=== PATIENT | female | born 1990 | race Caucasian/White ===

== ENCOUNTER 2017-05-29 09:33 | Emergency (ER) | payer BC, MEDICAID ==
[~2017-05-29 09:33] MED LIST: IBUP600 PO; PRENTAB62 PO
[2017-05-29 09:43] VITALS: BP 116/68; PULSE 97; RESP 18; TEMP 97.5; O2SAT 100
[2017-05-29] MEDS ORDERED: VITACAP8 PO (09:52)
[2017-05-29] MEDS ORDERED: ONDANSETRON HCL 4 MG/2 ML VIAL IV PUSH ONE (10:15)
[2017-05-29 10:26] LABS: AUTOMATED NEUTROPHIL # 14.4 TH/MM3 (1.8-7.7); BASOPHIL # 0.1 TH/MM3 (0-0.2); BASOPHIL % 0.3 % (0.0-2.0); EOSINOPHIL # 0.1 TH/MM3 (0-0.4); EOSINOPHIL % 0.5 % (0.0-4.0); HEMATOCRIT 38.1 % (35.0-46.0); HEMOGLOBIN 12.6 GM/DL (11.6-15.3); LYMPH % 8.6 % (9.0-44.0); LYMPHOCYTE # 1.4 TH/MM3 (1.0-4.8); MEAN CELL VOLUME 83.2 FL (80.0-100.0); MEAN CORPUSCULAR HEMOGLOBIN 27.6 PG (27.0-34.0); MEAN CORPUSCULAR HGB CONC 33.2 % (32.0-36.0); MEAN PLATELET VOLUME 7.5 FL (7.0-11.0); MONO % 3.7 % (0.0-8.0); MONOCYTE # 0.6 TH/MM3 (0-0.9); NEUT % 86.9 % (16.0-70.0); PLATELET COUNT 265 TH/MM3 (150-450); RED BLOOD COUNT 4.58 MIL/MM3 (4.00-5.30); RED CELL DISTRIBUTION WIDTH 14.3 % (11.6-17.2); WHITE BLOOD COUNT 16.6 TH/MM3 (4.0-11.0)
--- NOTE | 2017-05-29 10:29 | PD ---
HPI Chief Complaint: Syncope/Near-Syncope Time Seen by Provider: 09:50 Travel History International Travel<30 days: No Contact w/Intl Traveler<30days: No Traveled to known affect area: No History of Present Illness HPI 27-year-old at 24 weeks states this morning she has been feeling lightheaded, nauseous, and had an episode of nonbloody diarrhea. 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 She states with her 3 prior pregnancies she had no issues and was induced 1 week early with 1 of them. This she has not had any issues she denies any other concurrent complaints including abdominal pain, vaginal bleeding, fever Or other acute concerns. She states she feels worse when she moves around. She denies other modifying factors. Quality is lightheaded. Severity is progressive. PFSH Past Medical History Medical History: Denies Significant Hx Immunizations Current: Yes ?: LMP: 24 weeks Past Surgical History Surgical History: No Previous Surgery Social History Alcohol Use: No Tobacco Use: No Substance Use: No Allergies-Medications (Allergen,Severity, Reaction): Coded Allergies: No Known Allergies (Verified , 12/01/15) Reported Meds & Prescriptions Reported Meds & Active Scripts Active Reported Vitafol-One Capsule ( 26/Iron Ps/Folic/Dha) 29 Mg Iron-1 Mg-200 Mg Capsule 1 Cap PO DAILY Review of Systems Except as stated in HPI: all other systems reviewed are Neg Physical Exam Narrative GENERAL: 27-year-old female in no apparent distress SKIN: Focused skin assessment warm/dry. HEAD: Atraumatic. Normocephalic. EYES: Pupils equal and round. No scleral icterus. No injection or drainage. ENT: No nasal bleeding or discharge. Mucous membranes pink and moist. NECK: Trachea midline. No JVD. CARDIOVASCULAR: Regular rate and rhythm. No murmur appreciated. RESPIRATORY: No accessory muscle use. Clear to auscultation. Breath sounds equal bilaterally. GASTROINTESTINAL: Abdomen soft, non-tender MUSCULOSKELETAL: No obvious deformities. No clubbing. No cyanosis. NEUROLOGICAL: Awake and alert. No obvious cranial nerve deficits. Motor grossly within normal limits. Normal speech. PSYCHIATRIC: Appropriate mood and affect; insight and judgment normal. Data Data Last Documented VS Vital Signs Date Time Temp Pulse Resp B/P (MAP) Pulse Ox O2 Delivery O2 Flow Rate FiO2 05/29/17 09:43 97.5 97 18 116/68 (84) 100 Orders Orders Complete Blood Count With Diff (05/29/17 09:50) Basic Metabolic Panel (Bmp) (05/29/17 09:50) Urinalysis - C+S If Indicated (05/29/17 09:50) Iv Access Insert/Monitor (05/29/17 09:50) Heart Tones (05/29/17 09:51) Ondansetron Inj (Zofran Inj) (05/29/17 10:15) Sodium Chlor 0.9% 1000 Ml Inj (Ns 1000 M (05/29/17 11:15) Ed Discharge Order (05/29/17 11:48) Labs Laboratory Tests Test 05/29/17 10:03 05/29/17 11:25 White Blood Count 16.6 TH/MM3 Red Blood Count 4.58 MIL/MM3 Hemoglobin 12.6 GM/DL Hematocrit 38.1 % Mean Corpuscular Volume 83.2 FL Mean Corpuscular Hemoglobin 27.6 PG Mean Corpuscular Hemoglobin Concent 33.2 % Red Cell Distribution Width 14.3 % Platelet Count 265 TH/MM3 Mean Platelet Volume 7.5 FL Neutrophils (%) (Auto) 86.9 % Lymphocytes (%) (Auto) 8.6 % Monocytes (%) (Auto) 3.7 % Eosinophils (%) (Auto) 0.5 % Basophils (%) (Auto) 0.3 % Neutrophils # (Auto) 14.4 TH/MM3 Lymphocytes # (Auto) 1.4 TH/MM3 Monocytes # (Auto) 0.6 TH/MM3 Eosinophils # (Auto) 0.1 TH/MM3 Basophils # (Auto) 0.1 TH/MM3 CBC Comment AUTO DIFF Differential Total Cells Counted 100 Neutrophils % (Manual) 77 % Band Neutrophils % 8 % Lymphocytes % 11 % Monocytes % 4 % Neutrophils # (Manual) 14.1 TH/MM3 Differential Comment FINAL DIFF MANUAL Platelet Estimate NORMAL Platelet Morphology Comment NORMAL Red Cell Morphology Comment NORMAL Blood Urea Nitrogen 7 MG/DL Creatinine 0.45 MG/DL Random Glucose 84 MG/DL Calcium Level 8.1 MG/DL Sodium Level 136 MEQ/L Potassium Level 3.7 MEQ/L Chloride Level 103 MEQ/L Carbon Dioxide Level 24.5 MEQ/L Anion Gap 9 MEQ/L Estimat Glomerular Filtration Rate 166 ML/MIN Urine Color YELLOW Urine Turbidity CLEAR Urine pH 6.5 Urine Specific [place] 1.018 Urine Protein TRACE mg/dL Urine Glucose (UA) NEG mg/dL Urine Ketones 40 mg/dL Urine Occult Blood NEG Urine Nitrite NEG Urine Bilirubin NEG Urine Urobilinogen LESS THAN 2.0 MG/DL Urine Leukocyte Esterase NEG Urine RBC LESS THAN 1 /hpf Urine WBC 1 /hpf Urine Squamous Epithelial Cells 2 /hpf Urine Bacteria RARE /hpf Urine Mucus FEW /lpf Microscopic Urinalysis Comment CULT NOT INDICATED MDM Medical Decision Making Medical Screen Exam Complete: Yes Emergency Medical Condition: Yes Medical Record Reviewed: Yes (Past history confirmed) Interpretation(s) fht 130's per staff CBC & BMP Diagram 05/29/17 10:03 Calcium Level 8.1 L Differential Diagnosis Anemia, UTI, URI Narrative Course We will check blood work, urinalysis and discuss with OB ed workup no acute, Patient now notes lower abdominal cramping, states after talking with family other people have a stomach bug. This is likely the cause of her symptoms but given she is now having abdominal pain will have her evaluated upstairs with OB team. Patient is in agreement to this Physician Communication Physician Communication maryann gabriel states ok to send home and follow in office if no abdominal pain dr herrera notified of patient thru OR nurse Diagnosis Primary Impression: Lightheaded Additional Impressions: Nausea Diarrhea Qualified Codes: R19.7 - Diarrhea, unspecified Patient Instructions: General Instructions Additional Instructions: return as needed, go straight to OB ED Med/Other Pt SpecificInfo: No Change to Meds Disposition: 70 TRANSFER TO OTHER FACILITY (OB ED) Condition: Stable Lay Del Rosario MD May 29, 2017 10:29
[2017-05-29 10:56] LABS: BICARBONATE 24.5 MEQ/L (21.0-32.0); CALCIUM 8.1 MG/DL (8.5-10.1); CREATININE 0.45 MG/DL (0.50-1.00)
[2017-05-29] MEDS ORDERED: SODIUM CHLOR 0.9% 1000 ML INJ 1,000 ML IV ONE (11:15)
[2017-05-29 11:41] LABS: BANDS 8 % (0-6); LYMPHOCYTES 11 % (9-44); MONOCYTES 4 % (0-8); NEUTROPHIL # MANUAL DIFF 14.1 TH/MM3 (1.8-7.7); POLYS (SEG NEUTROPHILS) 77 % (16-70)
[2017-05-29 11:45] LABS: BACTERIA, URINE RARE /hpf; BILIRUBIN, URINE NEG (NEG); BLOOD, URINE NEG (NEG); GLUCOSE,URINE NEG (NEG); KETONE, URINE 40 mg/dL (NEG); MUCUS URINE FEW /lpf (OCC); NITRITE,URINE NEG (NEG); PH, URINE 6.5 (5.0-8.5); SQUAMOUS EPITHELIAL CELL URINE 2 /hpf (0-5); URINE COLOR YELLOW (YELLW/STRAW); URINE LEUKOCYTE ESTERASE NEG (NEG)
--- NOTE | 2017-05-29 14:19 | PD ---
HPI Chief Complaint nausea and diarrhea Date Seen: May 29, 2017 Time Seen: 13:35 Travel History International Travel<30 Days: No Contact w/Intl Traveler<30Days: No Known Affected Area: No History of Present Illness HPI Ms Llanes is a 27YO at 24/3 weeks (from [place] at 20 weeks[place] who presents with nausea and weakness since this morning and new onset diarrhea today. Pt describes feeling normal until waking up this morning when she began feeling weak, lightheaded, crampy, with a [place] and with 4 bouts of diarrhea she describes as watery. Pt has also had a toothache that began last Friday and has been taking tylenol intermittently for pain. There has been no vaginal bleeding or leakage of fluid. She describes no tooth pain today during the interview. At time of interview the pt describes most of her cramping and the headache having resolved, but still feels a little weak. Pt denies visual sxs or past hx of migraines, denies HTN or GDM in past pregnancies. She does describe feeling hot then cold. Denies any past hx of STIs and states all labs to date have been wnl. Pt indicates her visited relatives with a sick contact several days ago. History Past Medical History Medical History: Denies Significant Hx Obstetric History Obstetric History 3 normal vaginal deliveries, all 3 induced at 38 weeks no complications Is scheduled to get GTT in several weeks Cannot recall date of LMP Past Surgical History Surgical History: No Previous Surgery Family History Narrative Family History Pt was born prematurely Social History Alcohol Use: No Tobacco Use: No Substance Abuse: No Allergies-Medications (Allergen,Severity, Reaction): Coded Allergies: No Known Allergies (Verified , 12/01/15) Home Meds Reported Medications 26/Iron Ps/Folic/Dha (Vitafol-One Capsule) 29 Mg Iron-1 Mg-200 Mg Capsule, 1 CAP PO DAILY 05/29/17 Review of Systems General / Constitutional: No: Fever (pt felt hot then cold this morning), Chills Eyes: No: Diploplia, Blurred Vision, Visual changes HENT: Headaches (this morning), Dental Difficulties (toothache since Friday) , Lightheadedness Cardiovascular: No: Chest Pain or Discomfort, Palpitations Respiratory: No: Short of Breath Gastrointestinal: Nausea, Diarrhea, Abdominal Pain (cramping), No: Vomiting Genitourinary: No: Urgency, Dysuria Musculoskeletal: Weakness, Cramping, No: Edema Neurologic: Weakness, Headache Physical Exam Vital Signs Date Time Temp Pulse Resp B/P (MAP) Pulse Ox O2 Delivery O2 Flow Rate FiO2 05/29/17 09:43 97.5 97 18 116/68 (84) 100 Narrative GENERAL: Well-nourished, well-developed patient in NAD. SKIN: Warm and dry. No lesions or rashes. HEAD: Normocephalic and atraumatic. EYES: No scleral icterus. No injection or drainage. ENT: No nasal drainage noted. Mucous membranes pink. Airway patent. NECK: Supple, trachea midline. No JVD. CARDIOVASCULAR: Regular rate and rhythm without murmurs, gallops, or rubs. RESPIRATORY: Breath sounds equal bilaterally. No accessory muscle use. BREASTS: Bilateral exam showed no masses , no retractions, no nipple discharge. ABDOMEN/GI: Abdomen soft, non-tender, bowel sounds present, no rebound, no guarding Gravid to 24 weeks size GENITOURINARY: Cervix: - Dilatation: - Effacement: - Station: - Presentation: - Membranes: intact Uterine Contractions: absent FHT's: Category: 1 Baseline: 150 Reactive: yes Variability: moderate Decels: absent EXTREMITIES: No cyanosis or edema. BACK: Nontender without obvious deformity. No CVA tenderness. NEUROLOGICAL: Awake and alert. Motor and sensory grossly within normal limits. Five out of 5 muscle strength in all muscle groups. Normal speech. Data Data Vital Signs Reviewed: Yes Orders Orders Complete Blood Count With Diff (05/29/17 09:50) Basic Metabolic Panel (Bmp) (05/29/17 09:50) Urinalysis - C+S If Indicated (05/29/17 09:50) Iv Access Insert/Monitor (05/29/17 09:50) Heart Tones (05/29/17 09:51) Ondansetron Inj (Zofran Inj) (05/29/17 10:15) Sodium Chlor 0.9% 1000 Ml Inj (Ns 1000 M (05/29/17 11:15) Ed Discharge Order (05/29/17 11:48) Labs Laboratory Tests Test 05/29/17 10:03 05/29/17 11:25 White Blood Count 16.6 Red Blood Count 4.58 Hemoglobin 12.6 Hematocrit 38.1 Mean Corpuscular Volume 83.2 Mean Corpuscular Hemoglobin 27.6 Mean Corpuscular Hemoglobin Concent 33.2 Red Cell Distribution Width 14.3 Platelet Count 265 Mean Platelet Volume 7.5 Neutrophils (%) (Auto) 86.9 Lymphocytes (%) (Auto) 8.6 Monocytes (%) (Auto) 3.7 Eosinophils (%) (Auto) 0.5 Basophils (%) (Auto) 0.3 Neutrophils # (Auto) 14.4 Lymphocytes # (Auto) 1.4 Monocytes # (Auto) 0.6 Eosinophils # (Auto) 0.1 Basophils # (Auto) 0.1 CBC Comment AUTO DIFF Differential Total Cells Counted 100 Neutrophils % (Manual) 77 Band Neutrophils % 8 Lymphocytes % 11 Monocytes % 4 Neutrophils # (Manual) 14.1 Differential Comment FINAL DIFF MANUAL Platelet Estimate NORMAL Platelet Morphology Comment NORMAL Red Cell Morphology Comment NORMAL Blood Urea Nitrogen 7 Creatinine 0.45 Random Glucose 84 Calcium Level 8.1 Sodium Level 136 Potassium Level 3.7 Chloride Level 103 Carbon Dioxide Level 24.5 Anion Gap 9 Estimat Glomerular Filtration Rate 166 Urine Color YELLOW Urine Turbidity CLEAR Urine pH 6.5 Urine Specific [place] 1.018 Urine Protein TRACE Urine Glucose (UA) NEG Urine Ketones 40 Urine Occult Blood NEG Urine Nitrite NEG Urine Bilirubin NEG Urine Urobilinogen LESS THAN 2.0 Urine Leukocyte Esterase NEG Urine RBC LESS THAN 1 Urine WBC 1 Urine Squamous Epithelial Cells 2 Urine Bacteria RARE Urine Mucus FEW Microscopic Urinalysis Comment CULT NOT INDICATED MDM Medical Record Reviewed: Yes Narrative Course / MDM 27YO at 24/3 weeks presents with cramping, nausea and diarrhea since this morning and with likely viral gastroenteritis PLAN: 1. IUP -Continue normal care -Follow up with Aline Gabriel in 1 week 2. Viral gastroenteritis -Tylenol for pain PRN -Drink lots of fluids -Symptomatic treatment as needed -If fever or rapid dehydration, come back to ED for treatment Pt dw Dr Saxena Diagnosis Diagnosis: Primary Impression: Lightheaded Additional Impressions: Diarrhea Qualified Codes: R19.7 - Diarrhea, unspecified Nausea Gastroenteritis Disposition: 01 DISCHARGE HOME Condition: Stable Patient Instructions: General Instructions Additional Instructions: return as needed, go straight to OB ED Departure Forms: Tests/Procedures Royal Dean MD R1 May 29, 2017 14:19
== END 2017-05-29 15:25 | disposition home or self-care (01) ==
LOC: NEPE 09:33 → HOBED 15:25
DX: O26.892 Other specified pregnancy related conditions, second trimester (principal); K52.9 Noninfective gastroenteritis and colitis, unspecified; Z3A.24 24 weeks gestation of pregnancy
CPT/HCPCS: 80048; 81001; 85007; 85027; 96374; 99284; J2405; J7030

== ENCOUNTER 2017-09-13 18:24 | Inpatient (IN) ==
[~2017-09-13 18:24] MED LIST changes: +Diphtheria/Tetanus/Pertussis Vaccine Inj 0.5 ML Syringe IM ONE; -IBUP600 PO; +Measles/Mumps/Rubella Vaccine Inj 0.5 ML Vial SQ ONE; -PRENTAB62 PO
[2017-09-13] MEDS ORDERED: Oxytocin 30 Units/500ml Premix 30 UNITS/500 ML BAG IV.SIG ONE (19:18)
[2017-09-13] MEDS ORDERED: Sod Chloride 0.9% Inj 1,000 ML IV.CONT PRN (19:18)
[2017-09-13] MEDS ORDERED: Sodium Chlor 0.9% Inj 500 ML IV.SIG PRN (19:18)
[2017-09-13] MEDS ORDERED: Naloxone Inj 0.4 MG/ML Vial IV.PUSH PRN ×2 (19:18→22:06)
[2017-09-13] MEDS ORDERED: fentaNYL Citrate Inj 100 MCG/2 ML Ampul IV.PUSH PRN ×2 (19:18)
--- NOTE | 2017-09-13 19:24 | ED ---
History of Present Illness Primary Care Physician: NOT REQUIRED Chief Complaint: Contractions History of Present Illness: 27-year-old at 39/5 presenting to the OB ED with contractions. Patient states that she started having contractions today that have been increasing in frequency and intensity. Sitting they are 6-7 minutes apart currently. She denies any gush of fluid, vaginal bleeding or decreased movement. She states this is been an uncomplicated with no issues with her blood pressure or glucose. Her 3 previous deliveries were induced vaginal deliveries are also uncomplicated. She denies any fever, chills, dysuria, and a curvilinear vision, chest pain or shortness of breath. - Inpatient Certification I certify that the inpatient services were ordered in accordance with Medicare regulations governing the order. This includes certification that hospital inpatient services are reasonable and necessary and in the case of services not specified as inpatient-only under 42 CFR 419.22(n), that they are appropriately provided as inpatient services in accordance to with the 2-midnight benchmark under 43 CFR 412.3(e) Estimated Total Length of Stay (Days): 3 Plans for Post Hospital Care: Home Review of Systems All other systems reviewed negative except as stated in HPI PMFSH - Medical / Surgical Hx Neg / Unobtainable Medical Problems Denied: Yes Surgical History: No Previous Surgery - Family History Family History: Family History (Last Updated 09/13/17 @ 19:23 by Travis Hussein MD, R2) Other Family history of diabetes mellitus Family history of hypertension - Tobacco History Tobacco Use In Past 30 Days: No Smoking Status: Never smoker - Alcohol History How Often Do You Have a Drink Containing Alcohol: Never - Substance Use History Substance History: No History of Abuse - Travel History History of Recent Travel: No Recent Travel in the [place] Within the Last 8 Weeks: No Recent Travel Out of the Country Within the Last 8 Weeks: No Medications and Allergies Allergies Allergy/AdvReac Type Severity Reaction Status Date / Time No Known Allergies Allergy Verified 09/13/17 18:49 Home Medications Medication Instructions Recorded Confirmed Type prenat.vits,castillo,[id number] 1 tab PO DAILY 09/06/17 09/13/17 History [ Vitamin] Active Medications: Active Medications Citric Acid/Sodium Citrate (Sodium Citrate/Citric Acid Liq) 30 ml PO BED OPERATOR TIFF Stop: 09/17/17 19:29 Fentanyl Citrate (Fentanyl Inj) 100 mcg IV.PUSH Q1H PRN PRN Reason: PAIN SCALE 6 TO 10 Fentanyl Citrate (Fentanyl Inj) 50 mcg IV.PUSH Q1H PRN PRN Reason: Pain Scale 3 - 5 Lactated Ringer's (Lr 1000 Ml Inj) 1,000 mls @ 125 mls/hr IV.CONT .Q8H TIFF Lactated Ringer's (Lr 1000 Ml Inj) 1,000 mls @ 3,000 mls/hr IV.SIG UNSCH PRN PRN Reason: compromise or epidural Sodium Chloride (Ns Inj) 500 mls @ 1,000 mls/hr IV.SIG UNSCH PRN PRN Reason: SEE LABEL COMMENTS Sodium Chloride (Ns Inj) 1,000 mls @ 100 mls/hr IV.CONT .Q10H PRN PRN Reason: SEE LABEL COMMENTS Oxytocin (Pitocin 30 Units/Ns 500 Ml Premix) 30 units in 500 mls @ 999 mls/hr IV.SIG BOLUS ONE Stop: 09/13/17 19:48 Lidocaine HCl (Xylocaine 1% Inj) 0.1 ml I-DERMAL PRN PRN PRN Reason: For IV start Stop: 09/16/17 19:17 Lidocaine HCl (Xylocaine 1% Inj) 10 ml INFILTRATN PRN PRN PRN Reason: For episiotomy repair Stop: 09/15/17 19:17 Mineral Oil (Muri-Lube Oil) 10 ml TOPICAL PRN PRN PRN Reason: PRN perineal massage Naloxone HCl (Narcan Inj) 0.1 mg IV.PUSH Q2M PRN PRN Reason: for opiate reversal Exam Vital signs: Vital Signs 09/13/17 18:40 Pulse Rate 110 H Blood Pressure 121/78 Intake & Output 09/13/17 09/13/17 09/14/17 06:59 18:59 06:59 Weight 89 kg Narrative: GENERAL: Well-nourished, well-developed patient. SKIN: Warm and dry. HEAD: Normocephalic and atraumatic. EYES: No scleral icterus. No injection or drainage. ENT: No nasal drainage noted. Mucous membranes pink. Airway patent. NECK: Supple, trachea midline. No JVD. CARDIOVASCULAR: Regular rate and rhythm without murmurs, gallops, or rubs. RESPIRATORY: Breath sounds equal bilaterally. No accessory muscle use. ABDOMEN/GI: Abdomen soft, non-tender, bowel sounds present, no rebound, no guarding Gravid to 39 weeks size GENITOURINARY: External Genitalia: intact and normal in appearance Cervix: Anterior Dilatation: 4 Effacement: 90 Station: -2 Presentation: vertex Membranes: [intact] Uterine Contractions: Every 2-4 minutes FHT's: Category: 1 Baseline: 135 Reactive: y Variability: Moderate Decels: Occasional variable decelerations EXTREMITIES: No cyanosis or edema. BACK: Nontender without obvious deformity. No CVA tenderness. NEUROLOGICAL: Awake and alert. Moves all extremities without difficulty. Normal speech. Results - Labs CBC & Chem 7: 09/13/17 19:40 Assessment and Plan - Plan 27-year-old at 39/5 to the OB ED with contractions. Found to be 4 cm/90/- 2. Will admit for anticipated labor and delivery. - Attending Attestation The exam, history, and the medical decision-making described in the above note were completed with the assistance of the resident physician. I reviewed and agree with the findings presented. I attest that I had a [id number] encounter with the patient on the same day, and personally performed and documented my assessment and findings in the medical record. Discharge Plan - Physicians Team Primary Care Provider: NOT REQUIRED, Attending Provider: Giovani Luna
[2017-09-13] MEDS ORDERED: Citric Acid/Sodium Citrate Liq 30 ML UDC PO SCH (19:30)
[2017-09-13] MEDS ORDERED: Lidocaine PF 1% Inj 30 ML Vial ONE (19:53)
[2017-09-13] MEDS ORDERED: fentaNYL 2MCG-Bupiv 0.125% Epi 150 ML EPIDURAL ONE (19:53)
--- NOTE | 2017-09-13 19:54 | P.HPOB ---
History of Present Illness Primary Care Physician: NOT REQUIRED Chief Complaint: Contractions History of Present Illness: 27-year-old at 39/5 presenting to the OB ED with contractions. Patient states that she started having contractions today that have been increasing in frequency and intensity. Sitting they are 6-7 minutes apart currently. She denies any gush of fluid, vaginal bleeding or decreased movement. She states this is been an uncomplicated with no issues with her blood pressure or glucose. Her 3 previous deliveries were induced vaginal deliveries are also uncomplicated. She denies any fever, chills, dysuria, and a curvilinear vision, chest pain or shortness of breath. - Inpatient Certification I certify that the inpatient services were ordered in accordance with Medicare regulations governing the order. This includes certification that hospital inpatient services are reasonable and necessary and in the case of services not specified as inpatient-only under 42 CFR 419.22(n), that they are appropriately provided as inpatient services in accordance to with the 2-midnight benchmark under 43 CFR 412.3(e) Estimated Total Length of Stay (Days): 3 Plans for Post Hospital Care: Home Review of Systems All other systems reviewed negative except as stated in HPI PMFSH - Medical / Surgical Hx Neg / Unobtainable Medical Problems Denied: Yes Surgical History: No Previous Surgery - Family History Family History: Family History (Last Updated 09/13/17 @ 19:23 by Travis Hussein MD, R2) Other Family history of diabetes mellitus Family history of hypertension - Tobacco History Tobacco Use In Past 30 Days: No Smoking Status: Never smoker - Alcohol History How Often Do You Have a Drink Containing Alcohol: Never - Substance Use History Substance History: No History of Abuse - Travel History History of Recent Travel: No Recent Travel in the [place] Within the Last 8 Weeks: No Recent Travel Out of the Country Within the Last 8 Weeks: No Medications and Allergies Active Medications: Active Medications Citric Acid/Sodium Citrate (Sodium Citrate/Citric Acid Liq) 30 ml PO BLOCK FEEDER [facility] Stop: 09/17/17 19:29 Fentanyl Citrate (Fentanyl Inj) 100 mcg IV.PUSH Q1H PRN PRN Reason: PAIN SCALE 6 TO 10 Fentanyl Citrate (Fentanyl Inj) 50 mcg IV.PUSH Q1H PRN PRN Reason: Pain Scale 3 - 5 Lactated Ringer's (Lr 1000 Ml Inj) 1,000 mls @ 125 mls/hr IV.CONT .Q8H TIFF Lactated Ringer's (Lr 1000 Ml Inj) 1,000 mls @ 3,000 mls/hr IV.SIG UNSCH PRN PRN Reason: compromise or epidural Sodium Chloride (Ns Inj) 500 mls @ 1,000 mls/hr IV.SIG UNSCH PRN PRN Reason: SEE LABEL COMMENTS Sodium Chloride (Ns Inj) 1,000 mls @ 100 mls/hr IV.CONT .Q10H PRN PRN Reason: SEE LABEL COMMENTS Oxytocin (Pitocin 30 Units/Ns 500 Ml Premix) 30 units in 500 mls @ 999 mls/hr IV.SIG BOLUS ONE Stop: 09/13/17 19:48 Lidocaine HCl (Xylocaine 1% Inj) 0.1 ml I-DERMAL PRN PRN PRN Reason: For IV start Stop: 09/16/17 19:17 Lidocaine HCl (Xylocaine 1% Inj) 10 ml INFILTRATN PRN PRN PRN Reason: For episiotomy repair Stop: 09/15/17 19:17 Mineral Oil (Muri-Lube Oil) 10 ml TOPICAL PRN PRN PRN Reason: PRN perineal massage Naloxone HCl (Narcan Inj) 0.1 mg IV.PUSH Q2M PRN PRN Reason: for opiate reversal Allergies Allergy/AdvReac Type Severity Reaction Status Date / Time No Known Allergies Allergy Verified 09/13/17 18:49 Home Medications Medication Instructions Recorded Confirmed Type prenat.vits,castillo,[id number] 1 tab PO DAILY 09/06/17 09/13/17 History [ Vitamin] Exam Vital signs: Vital Signs 09/13/17 18:40 Pulse Rate 110 H Blood Pressure 121/78 Intake & Output 09/13/17 09/13/17 09/14/17 06:59 18:59 06:59 Weight 89 kg Narrative: GENERAL: Well-nourished, well-developed patient. SKIN: Warm and dry. HEAD: Normocephalic and atraumatic. EYES: No scleral icterus. No injection or drainage. ENT: No nasal drainage noted. Mucous membranes pink. Airway patent. NECK: Supple, trachea midline. No JVD. CARDIOVASCULAR: Regular rate and rhythm without murmurs, gallops, or rubs. RESPIRATORY: Breath sounds equal bilaterally. No accessory muscle use. ABDOMEN/GI: Abdomen soft, non-tender, bowel sounds present, no rebound, no guarding Gravid to 39 weeks size GENITOURINARY: External Genitalia: intact and normal in appearance Cervix: Anterior Dilatation: 4 Effacement: 90 Station: -2 Presentation: vertex Membranes: [intact] Uterine Contractions: Every 2-4 minutes FHT's: Category: 1 Baseline: 135 Reactive: y Variability: Moderate Decels: Occasional variable decelerations EXTREMITIES: No cyanosis or edema. BACK: Nontender without obvious deformity. No CVA tenderness. NEUROLOGICAL: Awake and alert. Moves all extremities without difficulty. Normal speech. Assessment and Plan - Diagnosis (1) Labor without complication Code(s): O80 - Encounter for full-term uncomplicated delivery Status: Acute Plan: /-2 with contractions every 2-4 minutes on the monitor Category 1 tracing with occasional variable decelerations GBS negative Uncomplicated to this point Will admit to labor and delivery with routine orders Membranes intact. Patient is electing to have epidural Will consider AROM pending the progression of labor (2) 39 weeks gestation of Code(s): Z3A.39 - 39 weeks gestation of Status: Acute - Plan 27-year-old at 39/5 to the OB ED with contractions. Found to be 4 cm/90/- 2. Will admit for anticipated labor and delivery.
[2017-09-13 19:56] LABS: Baso # (Auto) 0.1 th/mm3 (0.0-0.2); Baso % (Auto) 0.7 % (0.0-2.0); Eos # (Auto) 0.1 th/mm3 (0.0-0.4); Eos % (Auto) 1.3 % (0.0-4.0); Hematocrit 36.3 % (35.0-46.0); Hemoglobin 11.4 gm/dL (11.6-15.3); Lymph # (Auto) 2.1 th/mm3 (1.0-4.8); Lymph % (Auto) 21.6 % (9.0-44.0); Mean Corpuscular HGB Conc 31.5 % (32.0-36.0); Mean Corpuscular Hemoglobin 22.5 pg (27.0-34.0); Mean Corpuscular Volume 71.6 fL (80.0-100.0); Mean Platelet Volume 7.6 fL (7.0-11.0); Mono # (Auto) 0.8 th/mm3 (0.0-0.9); Mono % (Auto) 8.1 % (0.0-8.0); Neut # (Auto) 6.7 th/mm3 (1.8-7.7); Neut % (Auto) 68.3 % (16.0-70.0); Platelet Count 253 th/mm3 (150-450); Red Blood Count 5.07 mil/mm3 (4.00-5.30); Red Cell Distribution Width 18.1 % (11.6-17.2); White Blood Count 9.8 th/mm3 (4.0-11.0)
[2017-09-13 20:06] LABS: Amphetamine Screen,Urine Neg (Neg); Barbiturate Screen,Urine Neg (Neg); Cannabinoid Screen,Urine Neg (Neg); Cocaine Screen,Urine Neg (Neg)
[2017-09-13 20:26] LABS: Opiate Screen,Urine Neg (Neg)
[2017-09-13] MEDS ORDERED: fentaNYL Citrate Inj 100 MCG/2 ML Ampul EPIDURAL ONE (20:37)
[2017-09-13] MEDS ORDERED: fentaNYL 2MCG-Bupiv 0.125% Epi 150 ML EPIDURAL PRN (20:37)
--- NOTE | 2017-09-13 21:22 | P.OBGPN ---
The pt is comfortable with epidural. Cat 1 FHR cvx 8/100/-2 AROM-clear fluid P: expect VD
[2017-09-13] MEDS ORDERED: Zolpidem Tartrate 5 MG Tablet PO PRN (22:06)
[2017-09-13] MEDS ORDERED: Witch Hazel 50%/Glyderin 12.5% 40 Pad Jar RECTAL PRN (22:06)
[2017-09-13] MEDS ORDERED: Bisacodyl 10 MG Supp RECTAL PRN (22:06)
[2017-09-13] MEDS ORDERED: Benzocaine 20% Top Spray 60 ML Can TOPICAL PRN (22:06)
--- NOTE | 2017-09-13 22:13 | P.OBDELI ---
Weeks Gestation: 39 Episiotomy: none Vaginal Delivery: Spontaneous Presentation: Occiput anterior Nuchal Cord: x1 Delayed Cord Clamping (45 sec): Yes Placenta: Spontaneous delivery, Intact Laceration: Vaginal, 1 deg Repair: Vicryl interrupted Estimated blood loss (mL): 100 Infant: Female Infant Female A Delivery Date: 09/13/17 Delivery Time: 21:57 score (1 min): 8 score (5 min): 9 Additional Information: head delivered, occiput anterior, with gush of clear fluid. Single nuchal cord reduced at perineum. Anterior shoulder delivered with maternal effort closely followed by the posterior shoulder and body. Placenta spontaneously delivered. Single vaginal laceration noted at about 6 o clock. No hemostasis with pressure. Single Vicryl suture placed. Hemostasis achieved. 100mL blood loss. Attestation Attestation: The exam, history, and the medical decision-making described in the above note were completed with the assistance of the resident physician. I reviewed and agree with the findings presented. I attest that I had a [id number] encounter with the patient on the same day, and personally performed and documented my assessment and findings in the medical record.
[2017-09-13] MEDS ORDERED: Oxytocin 30 Units/500ml Premix 30 UNITS/500 ML BAG IV.CONT SCH (22:15)
[2017-09-14] MEDS: Ibuprofen 400 MG Tablet PO PRN ×2 (05:11→14:01)
[2017-09-14] MEDS: Acetaminophen 325 MG Tablet PO PRN ×2 (05:12→14:00)
--- NOTE | 2017-09-14 06:58 | P.PNOB ---
Subjective Interval history: Patient is a 27-year-old delivered at 39 weeks and 5 days. Patient is day 1 after . Patient's pain is well-controlled. Patient reports eating and drinking without any nausea or vomiting. Patient reports minimal bleeding. Patient has passed gas but no bowel movements. Patient is walking without lower extremity pain or shortness of breath. Patient is unsure about contraception and plans on breast-feeding. Objective Vital Signs/I&O: Vital Signs 09/13/17 18:40 09/13/17 20:00 09/13/17 20:25 Temperature Pulse Rate 110 H 88 Respiratory Rate 16 Blood Pressure 121/78 127/79 09/13/17 20:27 09/13/17 20:39 09/13/17 20:48 Temperature 99.2 F Pulse Rate 109 H 102 H Respiratory Rate 16 16 16 Blood Pressure 103/55 L 09/13/17 21:41 09/13/17 22:00 09/13/17 22:21 Temperature Pulse Rate 97 H 105 H Respiratory Rate 16 18 16 Blood Pressure 111/69 119/60 09/13/17 22:30 09/13/17 23:00 09/14/17 00:02 Temperature 98.2 F Pulse Rate 105 H 106 H 73 Respiratory Rate 16 18 Blood Pressure 106/63 123/68 107/69 Intake & Output 09/13/17 09/13/17 09/14/17 06:59 18:59 06:59 Weight 89 kg Result Diagrams: 09/13/17 19:40 Objective Remarks: GENERAL: Well-nourished, well-developed patient. CARDIOVASCULAR: Regular rate and rhythm without murmurs, gallops, or rubs. RESPIRATORY: Breath sounds equal bilaterally. No accessory muscle use. ABDOMEN/GI: Abdomen soft, non-tender. Fundus: Firm, non-tender at umbilicus. GENITOURINARY: Light to moderate bleeding. EXTREMITIES: No cyanosis or edema, non-tender, without signs of DVT. Medications and IVs: Active Medications Acetaminophen (Tylenol) 650 mg PO Q4H PRN PRN Reason: PAIN SCALE 1 TO 2 Last Admin: 09/14/17 05:12 Dose: 650 mg Al Hydroxide/Mg Hydroxide (Milk Of Magnesia Liq) 30 ml PO Q12H PRN PRN Reason: Mild Constipation Benzocaine (Americaine 20% [place]) 1 spray TOPICAL Q4H PRN PRN Reason: For Perineum Discomfort Last Admin: 09/14/17 00:56 Dose: 1 spray Bisacodyl (Dulcolax Supp) 10 mg RECTAL DAILY PRN PRN Reason: SEVERE CONSITIPATION Ephedrine Sulfate (Ephedrine/Ns Syringe) 10 mg IV.PUSH UNSCH PRN PRN Reason: SEE LABEL COMMENTS Stop: 09/14/17 20:38 Fentanyl/Bupivacaine/Sodium Chlor (Fentanyl 2 Mcg-Bupiv 0.125% Epi) 150 mls @ 12 mls/hr EPIDURAL PRN PRN PRN Reason: for Labor Pain Last Admin: 09/13/17 21:37 Dose: 12 mls/hr Lactulose (Lactulose Liq) 30 ml PO DAILY PRN PRN Reason: SEVERE CONSITIPATION Miscellaneous Information (Misc Information) 1 each OTHER UNSCH PRN PRN Reason: SEE LABEL COMMENTS Stop: 09/14/17 20:38 Miscellaneous Information (Misc Information) 1 each OTHER UNSCH PRN PRN Reason: SEE LABEL COMMENTS Stop: 09/14/17 20:38 Naloxone HCl (Narcan Inj) 0.1 mg IV.PUSH Q2M PRN PRN Reason: for opiate reversal Ondansetron HCl (Zofran Odt) 4 mg PO Q6H PRN PRN Reason: NAUSEA OR VOMITING Senna/Docusate Sodium (Krystle-Colace) 1 tab PO BID TIFF Sennosides (Senokot) 17.2 mg PO Q12H PRN PRN Reason: Moderate Constipation Sodium Chloride (Ns Flush) 2 ml IV.FLUSH BID TIFF Sodium Chloride (Ns Flush) 2 ml IV.FLUSH PRN PRN PRN Reason: FLUSH AFTER USING IV ACCESS Last Admin: 09/14/17 05:14 Dose: 2 ml Witch Ana/Glycerin (Tucks Pads) 1 applicatio RECTAL QID PRN PRN Reason: HEMORRHOIDS Last Admin: 09/14/17 00:56 Dose: 1 applicatio Zolpidem Tartrate (Ambien) 5 mg PO HS PRN PRN Reason: SLEEP Assessment and Plan - Diagnosis (1) Vaginal delivery Code(s): O80 - Encounter for full-term uncomplicated delivery Status: Acute Plan: Patient is a 27-year-old delivered at 39 weeks and 5 days. Patient is day 1 after . Patient was counseled to do 6 weeks of pelvic rest. Patient was counseled to follow up in 6 weeks. Patient requested follow-up and contraception. --AF VSS --Continue routine care --Motrin and Tylenol when necessary for pain --Encourage OOB --Pelvic rest for 6 weeks will need follow-up appointment at that time. --Contraception: Undecided at this time --Anticipate discharge tomorrow
[2017-09-14] MEDS ORDERED: Senna/Docusate Sodium 8.6/50 MG Tablet PO SCH (09:00)
--- NOTE | 2017-09-15 08:47 | P.PNOB ---
Subjective Post day: 2 Interval history: Patient is a 27-year-old delivered at 39 weeks and 5 days. Patient is day 2 after vaginal delivery. Patient's pain is well-controlled. Patient reports eating and drinking without any nausea or vomiting. Patient reports minimal bleeding. Patient has passed gas but no bowel movements. Patient is walking without lower extremity pain or shortness of breath. Patient reports desire for oral contraception and breast-feeding. Objective Vital Signs/I&O: Vital Signs 09/14/17 19:31 Temperature 98.0 F Pulse Rate 80 Respiratory Rate 18 Blood Pressure 114/74 Result Diagrams: 09/13/17 19:40 Objective Remarks: GENERAL: Well-nourished, well-developed patient. CARDIOVASCULAR: Regular rate and rhythm without murmurs, gallops, or rubs. RESPIRATORY: Breath sounds equal bilaterally. No accessory muscle use. ABDOMEN/GI: Abdomen soft, non-tender. Fundus: Firm, non-tender at umbilicus. GENITOURINARY: Light to moderate bleeding. EXTREMITIES: No cyanosis or edema, non-tender, without signs of DVT. Medications and IVs: Active Medications Acetaminophen (Tylenol) 650 mg PO Q4H PRN PRN Reason: PAIN SCALE 1 TO 2 Last Admin: 09/14/17 14:00 Dose: 650 mg Al Hydroxide/Mg Hydroxide (Milk Of Magnesia Liq) 30 ml PO Q12H PRN PRN Reason: Mild Constipation Benzocaine (Americaine 20% [place]) 1 spray TOPICAL Q4H PRN PRN Reason: For Perineum Discomfort Last Admin: 09/14/17 00:56 Dose: 1 spray Bisacodyl (Dulcolax Supp) 10 mg RECTAL DAILY PRN PRN Reason: SEVERE CONSITIPATION Fentanyl/Bupivacaine/Sodium Chlor (Fentanyl 2 Mcg-Bupiv 0.125% Epi) 150 mls @ 12 mls/hr EPIDURAL PRN PRN PRN Reason: for Labor Pain Last Admin: 09/13/17 21:37 Dose: 12 mls/hr Lactulose (Lactulose Liq) 30 ml PO DAILY PRN PRN Reason: SEVERE CONSITIPATION Naloxone HCl (Narcan Inj) 0.1 mg IV.PUSH Q2M PRN PRN Reason: for opiate reversal Ondansetron HCl (Zofran Odt) 4 mg PO Q6H PRN PRN Reason: NAUSEA OR VOMITING Senna/Docusate Sodium (Krystle-Colace) 1 tab PO BID [facility] Last Admin: 09/15/17 08:07 Dose: 1 tab Sennosides (Senokot) 17.2 mg PO Q12H PRN PRN Reason: Moderate Constipation Sodium Chloride (Ns Flush) 2 ml IV.FLUSH BID [facility] Last Admin: 09/15/17 08:07 Dose: Not Given Sodium Chloride (Ns Flush) 2 ml IV.FLUSH PRN PRN PRN Reason: FLUSH AFTER USING IV ACCESS Last Admin: 09/14/17 05:14 Dose: 2 ml Witch Ana/Glycerin (Tucks Pads) 1 applicatio RECTAL QID PRN PRN Reason: HEMORRHOIDS Last Admin: 09/14/17 00:56 Dose: 1 applicatio Zolpidem Tartrate (Ambien) 5 mg PO HS PRN PRN Reason: SLEEP Assessment and Plan - Diagnosis (1) Vaginal delivery Code(s): O80 - Encounter for full-term uncomplicated delivery Status: Acute - Plan Patient is a 27-year-old delivered at 39 weeks and 5 days. Patient is day 2 after vaginal delivery. Patient was counseled to do 6 weeks of pelvic rest. Patient was counseled to follow up in 6 weeks. Patient requested follow-up and contraception. --Motrin and Tylenol for pain --Encourage OOB --Pelvic rest for 6 weeks will need follow-up appointment at that time. --Contraception: Micronor --Discharge today
== END 2017-09-15 13:18 | disposition home or self-care (01) ==
LOC: HOBED 18:24 → H2E 19:10 → H1EA 09-14 00:01
PROVIDERS: ADMIT Obstetrics & Gynecology; ATTEND Obstetrics & Gynecology